=== PATIENT | male | born 2000 | race Caucasian/White ===

== ENCOUNTER 2024-07-27 13:44 | Observation (INO) | payer MEDICAID, SELFPAY ==
[2024-07-27] VITALS (14 sets, daily range): BP systolic 115–176; BP diastolic 55–83; PULSE 78–103; RESP 16–22; TEMP 36.5–37.2; O2SAT 96–100; BMI 38.9; BMI 32.5
[2024-07-27 14:15] LABS: Bacteria 0 SEEN /hpf (None Seen); Mucous, Urine 0 SEEN /hpf (<or=2+)
[2024-07-27 14:16] LABS: Color, Urine Yellow (Yellow); Glucose, Dipstick Normal (Normal); Ketone-Dipstick Negative (Negative); Leukocyte Esterase-Dipstick 25 /ul (Negative); Nitrite-Dipstick Negative (Negative); Occult Blood-Urine Negative /ul (Negative); Protein-Dipstick 15 mg/dl (Negative); Specific Gravity, Urine 1.015 (1.002-1.030); Urine Bilirubin Dipstick Negative (Negative); Urine Clarity Clear (Clear); Urine Urobilinogen Normal (Normal); Urine pH 6.5 (5.0 - 8.0)
[2024-07-27 14:32] LABS: Absolute Lymphocyte Count 2.74 X10^3/uL (0.83-4.51); Absolute Neutrophil Count 3.2 X10^3/uL (2.0-7.7); Basophil# 0.05 X10^3/uL; Basophil% 0.7 % (0-1); Eosinophil# 0.13 X10^3/uL; Eosinophils% 1.9 % (0-5); Hematocrit 44.5 % (40-54); Hemoglobin 15.4 g/dL (13.0-16.5); Lymphocyte # 2.74 X10^3/ul (0.83-4.51); Lymphocyte % 40.5 % (19-41); Mean Corp Hgb Conc 34.6 g/dL (32-36); Mean Corpuscular Hgb 29.6 pg (27.0-32.0); Mean Corpuscular Volume 85.4 fL (80-94); Mean Platelet Vol. 11.4 fl (6.2-12.0); Monocyte# 0.58 X10^3/uL; Monocyte% 8.6 % (0-10); NRBC Flagged by Analyzer 0 % (0-5); Neutrophil # 3.22 X10^3/uL (2.7-7.7); Neutrophil % 47.7 % (47-70); Platelet Count 287 K/mm3 (150-450); RBC Distribution Width CV 13.1 % (11.6-14.6); RBC Distribution Width SD 39.9 fl (35.1-43.9); Red Blood Count 5.21 M/mm3 (4.6-6.2); White Blood Count 6.8 K/mm3 (4.4-11.0)
[2024-07-27 14:40] LABS: Squamous Epithelial Cells - UA 0-5 SEEN /hpf (0-5); White Blood Cells 0-5 SEEN /hpf (0-5)
[2024-07-27 14:41] LABS: Red Blood Cells-Urine 0 SEEN /hpf (0-5)
[2024-07-27 15:22] LABS: Anion Gap 11 (5-15); BUN 9 mg/dL (4-19); BUN/Creat Ratio 11.5 RATIO (10-20); Calcium,Total 9.7 mg/dL (7.6-11.0); Carbon Dioxide 25.3 mmol/L (21.0-32.0); Chloride 105 mmol/L (98-108); Creatinine, Serum 0.81 mg/dL (0.70-1.20); EST Glomerular Filtration Rate 126 (>60); Estimated Creatinine Clearance 201.81 ml/min (50-250); Glucose 110 mg/dL (70-99); Potassium 3.7 mmol/L (3.3-5.1); Sodium Level 141 mmol/L (133-145)
--- NOTE | 2024-07-27 15:22 | CT_ITS ---
PROCEDURE: ABDOMEN/PELVIS W IV CONT ONLY REASON FOR EXAM: One-week history of right-sided abdominal pain. TECHNIQUE: Abdomen and pelvis CT with intravenous contrast. No oral contrast. IV CONTRAST: 93 cc of Isovue-300. COMPARISON: None. FINDINGS: Lung bases: Clear Liver: Diffuse fatty infiltration. Gallbladder: Unremarkable. Spleen: Unremarkable. Pancreas: Unremarkable. Adrenals: Unremarkable. Kidneys: Unremarkable. Bladder: Unremarkable. Reproductive Organs: Unremarkable. Bowel: Unremarkable. Appendix: A calcified appendicolith is seen within the appendix. The appendix measures upper limits of normal. Questionable small amount of Fidelina appendiceal inflammatory change. Clinical correlation recommended. Lymph nodes: No suspicious lymph node enlargement. Vasculature: Major vascular structures are unremarkable. Peritoneum / Retroperitoneum: No ascites. No free air. Bones: Unremarkable. CT/Abdomen/Pelvis W IV Cont ONLY IMPRESSION: Subtle findings suggestive of mild acute appendicitis with a calcified appendic olith. Clinical correlation recommended. One or more dose reduction techniques were used (e.g., Automated exposure contr ol, adjustment of the mA and/or kV according to patient size, use of iterative reconstruction technique). Reading Location: [id number]
--- NOTE | 2024-07-27 15:24 | EDS_ITS ---
HPI HPI - GI History of Present Illness Chief Complaint: Abd Pain Informant: patient and family Narrative Narrative: Here with family referred from urgent care. Right side abdominal pain waxing and waning for a week. Pain worse at night. No worsening pain with foods. No fever or chills. No nausea or vomiting. Normal stools. No urinary symptoms. Denies trauma. No abdominal surgeries. No medications taken at home. Prior similar symptoms: No PFSH PFSH Medical History (Updated 07/27/24 @ 22:[address] tSewart Samuels DO) Appendicitis No significant medical problems Home Medications ?Medication ?Instructions ?Recorded ?Last Taken ?Type NK 09/25/23 Unknown History Allergy/AdvReac Type Severity Reaction Status Date / Time cefazolin Allergy throat Verified 07/27/24 17:20 swelling Surgical History No significant past surgical history Social History Smoking Status: Current every day smoker tobacco type: cigarettes and smokeless tobacco Smokeless tobacco user: other Electronic Cigarette Use: with nicotine alcohol intake: never substance use type: does not use ROS ROS ED Constitutional Constitutional ED: Denies chills, fever(s) or sweats ENT ENT ED: Denies sore throat Cardiovascular Cardiovascular: Denies chest pain, leg edema, palpitations or racing heartbeat Respiratory/Chest Respiratory/Chest: Denies cough, dyspnea or dyspnea on exertion Gastrointestinal Gastrointestinal: Reports abdominal pain; Denies diarrhea, nausea or vomiting Genitourinary Genitourinary ED: Denies dysuria, hematuria or urinary frequency Musculoskeletal Musculoskeletal: Denies back pain, extremity pain or neck pain Integumentary Denies rash or wounds Neurologic Neurologic: Denies headache(s), paresthesias or weakness EXAM Physical Exam Const Vital Signs: 07/27/24 13:45 07/27/24 16:40 07/27/24 17:56 Temperature 98.1 F 98.2 F 98.2 F Temperature Source Temporal Pulse Rate 87 88 88 Pulse Strength Respiratory Rate 16 16 16 Respiratory Effort Respiratory Depth Respiratory Pattern Blood Pressure 176/83 H 144/67 H 144/67 H Blood Pressure Mean 114 92 Blood Pressure Source Blood Pressure Position Blood Pressure Location Baseline BP Pulse Ox 99 97 97 Oxygen Delivery Method Room Air 07/27/24 19:15 07/27/24 19:15 07/27/24 19:20 Temperature 97.7 F L Temperature Source Temporal Pulse Rate 84 85 Pulse Strength Normal (2+) Respiratory Rate 18 18 Respiratory Effort Respiratory Depth Respiratory Pattern Normal Blood Pressure 131/77 H 122/60 H Blood Pressure Mean 95 80 Blood Pressure Source Monitor Monitor Blood Pressure Position Semi-Fowlers Semi-Fowlers Blood Pressure Location Left Arm Left Arm Baseline BP 144/67 Pulse Ox 100 100 Oxygen Delivery Method Room Air Room Air 07/27/24 19:21 07/27/24 19:25 07/27/24 19:30 Temperature 97.7 F L Temperature Source Pulse Rate 86 78 80 Pulse Strength Respiratory Rate 16 18 16 Respiratory Effort Respiratory Depth Respiratory Pattern Blood Pressure 131/77 H 121/55 H 116/61 Blood Pressure Mean 77 79 Blood Pressure Source Monitor Monitor Blood Pressure Position Semi-Fowlers Semi-Fowlers Blood Pressure Location Left Arm Left Arm Baseline BP 144/67 Pulse Ox 98 97 100 Oxygen Delivery Method Room Air Room Air Room Air 07/27/24 19:45 07/27/24 20:00 07/27/24 20:15 Temperature Temperature Source Pulse Rate 86 94 97 Pulse Strength Respiratory Rate 16 16 18 Respiratory Effort Respiratory Depth Respiratory Pattern Blood Pressure 115/66 135/81 H 131/65 H Blood Pressure Mean 82 99 87 Blood Pressure Source Monitor Monitor Monitor Blood Pressure Position Semi-Fowlers Semi-Fowlers Semi-Fowlers Blood Pressure Location Left Arm Left Arm Left Arm Baseline BP 144/67 144/67 144/67 Pulse Ox 98 97 100 Oxygen Delivery Method Room Air Room Air Room Air 07/27/24 20:25 07/27/24 20:49 07/27/24 21:57 Temperature 97.7 F L 97.9 F Temperature Source Temporal Oral Pulse Rate 103 H 93 Pulse Strength Respiratory Rate 16 22 H Respiratory Effort Normal Non-Labored Respiratory Depth Normal Respiratory Pattern Normal Blood Pressure 134/75 H 137/78 H Blood Pressure Mean 94 97 Blood Pressure Source Monitor Monitor Blood Pressure Position Semi-Fowlers Semi-Fowlers Blood Pressure Location Left Arm Left Arm Baseline BP 144/67 Pulse Ox 100 96 Oxygen Delivery Method Room Air Room Air Room Air Positive well nourished and well developed General Appearance ED: well developed and NAD HEENT Reports moist mucous membranes normocephalic and atraumatic Eyes General Eye ED: Yes normal appearance of both eyes Neck full ROM Chest Wall Chest: Negative for tenderness Resp normal respiratory effort and normal air movement Effort and Inspection: symmetric chest movement; Negative for respiratory distress Cardio regular rate, regular rhythm and no murmurs Peripheral Pulses: pulses 2+ throughout GI normal to inspection, nondistended, normoactive bowel sounds GI Narrative: Tenderness right mid abdomen. No rash. negative Tian's or McBurney's tenderness. Palpation: Negative for guarding or rebound tenderness present Back/Spine no CVA tenderness Extremity normal to inspection General Extremety ED: Negative for edema or tenderness General Extremity: Negative for edema Neuro oriented x3 and no sensory deficits noted Sensorium / Orientation: awake and alert Skin no rashes or lesions noted and no wounds MDM MDM MDM Narrative Medical decision making narrative: Interventions / MDM: Differential diagnosis: Acute appendicitis, abdominal pain Diagnosis considered but do not suspect: N/A My EKG interpretation: Sinus rate of 98, no ST changes. Imaging independently reviewed and interpreted by myself: CT abdomen pelvis IV contrast: Appendicolith with acute appendicitis. Preop 1 view chest x-ray: No acute process. External documents reviewed: N/A Test considered but not ordered:N/A ED course: Tenderness right side mid abdomen. Negative Tian's McBurney's. No vomiting no diarrhea no fevers. He had basic labs through triage white count normal at 6.8. Creatinine 0.81. Urine had 25 leukocytes no hematuria. Will add lipase liver enzymes, CT abdomen pelvis IV contrast for further evaluation. Toradol ordered for symptom control. 1618: CT result concerning for periappendiceal stranding with appendicolith. Appendix at the iliac crest region. On reevaluation there is tenderness in this region also. I will discuss with general surgery. 1620: Discussed with Dr. Alcala, he did eat a full meal at 1 PM nearly 3 and half hours ago. Will start Zosyn. He will evaluate the patient admit under ops at this time, will see able to do tonight versus tomorrow. Will admit under surgery service. Re-evaluation: stable Disposition discussed with patient/family/significant other: Patient and family Case discussed with consulting clinician: General Surgery This note was generated with [employer] dictation software. It may contain incorrect words, spelling, and punctuation that were not noted in checking the note before signing. Lab Data Attestation: I reviewed the patient's lab results. Labs: Laboratory Results - last 24 hr 07/27/24 07/27/24 07/27/24 14:08 14:20 16:41 WBC 6.8 RBC 5.21 Hgb 15.4 Hct 44.5 MCV 85.4 MCH 29.6 MCHC 34.6 RDW Std Deviation 39.9 RDW Coeff of John 13.1 Plt Count 287 MPV 11.4 Immature Gran % (Auto) 0.600 Neut % (Auto) 47.7 Lymph % (Auto) 40.5 [place] % (Auto) 8.6 Eos % (Auto) 1.9 Baso % (Auto) 0.7 Absolute Neuts (auto) 3.2 Absolute Lymphs (auto) 2.74 Nucleated RBC % 0 PT 12.0 INR 0.9 APTT 22.3 L Sodium 141 Potassium 3.7 Chloride 105 Carbon Dioxide 25.3 Anion Gap 11 BUN 9 Creatinine 0.81 Estim Creat Clear Calc 201.81 Est GFR (MDRD) Non-Af 126 BUN/Creatinine Ratio 11.5 Glucose 110 H Calcium 9.7 Total Bilirubin 0.33 Direct Bilirubin 0.14 AST 32 ALT 33 Alkaline Phosphatase 80 Total Protein 7.9 Albumin 4.6 Globulin 3.3 Lipase 30 Urine Color Yellow Urine Clarity Clear Urine pH 6.5 Ur Specific [place] 1.015 Urine Protein 15 H Urine Glucose (UA) Normal Urine Ketones Negative Urine Occult Blood Negative Urine Nitrite Negative Urine Bilirubin Negative Urine Urobilinogen Normal Ur Leukocyte Esterase 25 H Urine RBC 0 SEEN Urine WBC 0-5 SEEN Ur Squamous Epith Cells 0-5 SEEN Urine Bacteria 0 SEEN Urine Mucus 0 SEEN Blood Type O POSITIVE Antibody Screen NEGATIVE Radiography Diagnostic Testing: Clinical Impression(s) from Imaging Studies Abdomen/Pelvis CT 07/27/24 15:22 IMPRESSION: Subtle findings suggestive of mild acute appendicitis with a calcified appendicolith. Clinical correlation recommended. One or more dose reduction techniques were used (e.g., Automated exposure control, adjustment of the mA and/or kV according to patient size, use of iterative reconstruction technique). Reading Location: [id number] Chest X-Ray 07/27/24 16:30 IMPRESSION: NEGATIVE CHEST. Reading Location: [facility] Discharge Plan Dx/Rx/DC Orders Clinical Impression: Acute appendicitis, Abdominal pain Disposition Disposition: Acute Care Hospital [facility] Discharge Date/Time: 07/27/24 17:01
[2024-07-27] MEDS: Ketorolac 15 MG/ML Vial IV (15:39)
[2024-07-27] MEDS: 0.9% Normal Saline (500mL Bag) 500 ML 999 ML IV (15:39)
--- NOTE | 2024-07-27 16:30 | RAD_ITS ---
PROCEDURE: CHEST 1 VIEW (PORTABLE) REASON FOR EXAM: 24-year-old male, preoperative examination. TECHNIQUE: Frontal view of the chest. COMPARISON: Same day CT abdomen pelvis. FINDINGS: The heart size is normal. No focal consolidation, pleural effusion or pneumothorax. The bones are unremarkable. RAD/Chest 1 View (Portable) IMPRESSION: NEGATIVE CHEST. Reading Location: [id number]
[2024-07-27 16:32] LABS: AST(SGOT) 32 U/L (<=37); Alanine Aminotransfer ALT/SGPT 33 U/L (<=46); Albumin, Serum 4.6 g/dL (3.5-5.0); Alkaline Phosphatase 80 U/L (40-129); Bilirubin, Direct 0.14 mg/dL (0.00-0.30); Globulin 3.3 g/dL (2.2-4.2); Lipase 30 U/L (13-75); Protein, Total 7.9 g/dL (5.9-8.4); Total Bilirubin 0.33 mg/dL (0.00-1.30)
[2024-07-27] MEDS: Piperacil/Tazobactam 4.5 GM in 0.9% Normal Saline (100mL MB+) 100 ML IV (16:41)
[2024-07-27 17:03] LABS: International Normalized Ratio 0.9; Partial Thromboplast Time 22.3 Seconds (24.1-36.2)
--- NOTE | 2024-07-27 17:56 | PCM.PRE.AN2 ---
ASA Classification* ASA Classification ASA Classification: 3 Assessment & Plan Anesthesia* Anesthesia Assessment Anesthesia Assessment: Discussed sedation and/or anesthesia options, risks, benefits, and alternatives with patient/parents/legal guardian/POA. Questions invited. The patient/parents/legal guardian/POA seems to understand and agrees to proceed with anesthesia plan. Reviewed the physical assessment, medical history, allergy history and patient home medications list prior to surgery/procedure/anesthetic and documented any changes. Performed airway and anesthesia risk assessments. Anesthesia Type Anesthesia Type: General Anesthesia Focused Assessment* Temperature: 98.2 F Pulse Rate: 88 Blood Pressure: 144/67 Respiratory Rate: 16 Pulse Ox: 97 Airway Assessment Mouth opens: >3 cm Mallampati Score: II Focused Labs Anesthesia Preop lab: CBC WBC 6.8 K/mm3 (4.4-11.0) 07/27/24 14:20 07/27/24 RBC 5.21 M/mm3 (4.6-6.2) 07/27/24 14:20 07/27/24 Hgb 15.4 g/dL (13.0-16.5) 07/27/24 14:20 07/27/24 Hct 44.5 % (40-54) 07/27/24 14:20 07/27/24 Plt Count 287 K/mm3 (150-450) 07/27/24 14:20 07/27/24 CHEMISTRY Potassium 3.7 mmol/L (3.3-5.1) 07/27/24 14:20 07/27/24 Sodium 141 mmol/L (133-145) 07/27/24 14:20 07/27/24 BUN 9 mg/dL (4-19) 07/27/24 14:20 07/27/24 Creatinine 0.81 mg/dL (0.70-1.20) 07/27/24 14:20 07/27/24 Glucose 110 mg/dL (70-99) H 07/27/24 14:20 07/27/24 COAG PT 12.0 SECONDS (11.7-14.9) 07/27/24 16:41 07/27/24 Pre-Assessment Diagnosis/Proposed Procedure Planned Operative Procedure(s): laproscopic appendectomy Anesthesia History 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 When Was Last Pacemaker Check QUESTION #4 FULL TEXT: You/Your Family Experience fever (hyperthermia) with Anesthesia Last Oral Intake Last Oral intake: Last Oral Intake NPO since 13:00 07/27/24 16:51 Meds taken in AM with sips of water? 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 Has anyone observed you stop No 07/27/24 16:51 breathing during sleep? STOP Results Negative 07/27/24 16:51 QUESTION #5 FULL TEXT : Do you snore loudly (louder than talking or can be heard through closed doors)? 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 Specify any problems Hx of Preganancy in last 3 Months Nurse Filling Out Transfusion & Questions: Date: Time: Patient unable to answer at this time (ie. 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: /Reproductive Hx- supervisor metal furniture fabrication Hx Now No 07/27/24 16:51 Gestational Age (in weeks): EDC: Hx Hx Para Hx Section SAB Active Medications Active Medications: Current Medications Generic Name Dose Route Start Last Admin Trade Name Freq PRN Reason Stop Dose Admin Sodium Chloride 1,000 mls @ 15 mls/hr 07/27/24 17:30 IV 08/02/24 06:49 .Q48H [facility] Protocol PFSH Medical History No significant medical problems Home Medications ?Medication ?Instructions ?Recorded ?Last Taken ?Type NK 09/25/23 Unknown History Allergy/AdvReac Type Severity Reaction Status Date / Time cefazolin Allergy throat Verified 07/27/24 17:20 swelling Surgical History No significant past surgical history Social History Smoking Status: Unknown if ever smoked Smokeless tobacco user: other Electronic Cigarette Use: with nicotine alcohol intake: never substance use type: does not use Review of Systems (Anesthesia) ROS Narrative System reviewed and no additional complaints, except as documented.
--- NOTE | 2024-07-27 18:05 | APP_PTH ---
PATIENT: YOSEF DENTON LOC: MS3 U#:[id number] AGE/SX: 24/M ROOM: WI310 RE07/27/[address]: Dr. Wilmer Alcala MD : 2000 BED: 1 DIS: 07/28/2024 SPEC #: [id number] RECD: 07/28/24 09:56 STATUS: ALBERTO OGDEN #: [id number] JCARLOS: 07/27/24 18:[address]: Wilmer Alcala DEPT: SURGICAL PATHOLOGY RECD BY: Catalina Larkin ENTERED: 07/28/24 11:21 SP TYPE: APPENDIX OTHR DR: Jessica Primary Care Phys Tissues: Appendix, NOS Procedures: Surgery Specimen Level III HEADER OPERATION: Laparoscopic appendectomy PRE-OP DIAGNOSIS: Appendicitis TISSUE SUBMITTED: Appendix MICROSCOPIC DIAGNOSIS Appendix, appendectomy: * Acute appendicitis. MICROSCOPIC DESCRIPTION Slides are reviewed. GROSS DESCRIPTION Received in formalin labeledBishop Blade and designated appendix, is a vermiform appendix that measures 5.2 cm long x 1.1 cm in diameter. The serosal surface is red-barker with focal ragged fibrous adhesions and a minimal amount of barker fibrin. The serosa adjacent to the staple line margin is inked black. Sectioning shows focal areas of mucosal hemorrhage. The lumen contains formed fecal material however no fecalith is seen. There are no areas suspicious for perforation seen. The wall at the appendix tip is slightly thickened and there is minimal mucosal hemorrhage. The mesoappendix measures 3.5 x 1.5 x 1.0 cm. Field Research Associate sections submitted in one cassette. Quinn. 07/28/2024 CPT:23641
--- NOTE | 2024-07-27 18:05 | HP.PCM_ITS ---
HPI - General General Date of Admission: 07/27/24 Date of Service: 07/27/24 Chief Complaint: Right lower quadrant pain HPI Narrative YOSEF DENTON, is a 24 M who presented to the emergency department earlier today with not a weeks worth of right sided abdominal pain. He states that this is worse at night. He denies any fevers or chills. No nausea or vomiting. He was seen evaluate by the ER staff. He had a normal white blood cell count however CAT scan seem to indicate an early appendicitis. He denies any previous abdominal surgery. Surgical consultation was obtained. [facility] Medical History (Updated 07/27/24 @ 18:[address] Wilmer Alcala MD) Appendicitis No significant medical problems Home Medications ?Medication ?Instructions ?Recorded ?Last Taken ?Type NK 09/25/23 Unknown History Allergy/AdvReac Type Severity Reaction Status Date / Time cefazolin Allergy throat Verified 07/27/24 17:20 swelling Surgical History No significant past surgical history Social History Smoking Status: Unknown if ever smoked Smokeless tobacco user: other Electronic Cigarette Use: with nicotine alcohol intake: never substance use type: does not use ROS Constitutional Constitutional: Reports systems reviewed and no addt'l complaints, except as documented Eyes Eyes: Reports systems reviewed and no addt'l complaints, except as documented ENT HEENT: Reports systems reviewed and no addt'l complaints, except as documented Cardiovascular Cardiovascular: Reports systems reviewed and no addt'l complaints, except as documented Respiratory/Chest Respiratory/Chest: Reports systems reviewed and no addt'l complaints, except as documented Gastrointestinal Gastrointestinal: Reports systems reviewed and no addt'l complaints, except as documented Vital Signs Vital Signs Vital Signs: 07/27/24 13:45 07/27/24 16:40 07/27/24 17:56 Temperature 98.1 F 98.2 F 98.2 F Temperature Source Temporal Pulse Rate 87 88 88 Respiratory Rate 16 16 16 Blood Pressure 176/83 H 144/67 H 144/67 H Blood Pressure Mean 114 92 Pulse Ox 99 97 97 Oxygen Delivery Method Room Air Weight Weight: 295 lb Body Mass Index (BMI) 38.9 Physical Exam Const alert, oriented x3 and no apparent distress HEENT normocephalic Eyes PERRL Neck full ROM GI GI Narrative: Mild right-sided tenderness to palpation. No rebound or guarding Results Lab / Micro Data 07/27/24 14:20 07/27/24 14:20 Labs: Laboratory Results - last 24 hr 07/27/24 14:08: Urine Color Yellow, Urine Clarity Clear, Urine pH 6.5, Ur Specific [place] 1.015, Urine Protein 15 H, Urine Glucose (UA) Normal, Urine Ketones Negative, Urine Occult Blood Negative, Urine Nitrite Negative, Urine Bilirubin Negative, Urine Urobilinogen Normal, Ur Leukocyte Esterase 25 H, Urine RBC 0 SEEN, Urine WBC 0-5 SEEN, Ur Squamous Epith Cells 0-5 SEEN, Urine Bacteria 0 SEEN, Urine Mucus 0 SEEN 07/27/24 14:20: WBC 6.8, RBC 5.21, Hgb 15.4, Hct 44.5, MCV 85.4, MCH 29.6, MCHC 34.6, RDW Std Deviation 39.9, RDW Coeff of John 13.1, Plt Count 287, MPV 11.4, Immature Gran % (Auto) 0.600, Neut % (Auto) 47.7, Lymph % (Auto) 40.5, [place] % (Auto) 8.6, Eos % (Auto) 1.9, Baso % (Auto) 0.7, Absolute Neuts (auto) 3.2, Absolute Lymphs (auto) 2.74, Nucleated RBC % 0, Sodium 141, Potassium 3.7, Chloride 105, Carbon Dioxide 25.3, Anion Gap 11, BUN 9, Creatinine 0.81, Estim Creat Clear Calc 201.81, Est GFR (MDRD) Non-Af 126, BUN/Creatinine Ratio 11.5, G lucose 110 H, Calcium 9.7, Total Bilirubin 0.33, Direct Bilirubin 0.14, AST 32, ALT 33, Alkaline Phosphatase 80, Total Protein 7.9, Albumin 4.6, Globulin 3.3, Lipase 30 07/27/24 16:41: PT 12.0, INR 0.9, APTT 22.3 L, Blood Type O POSITIVE, Antibody Screen NEGATIVE Imaging Radiology Impression Abdomen/Pelvis CT 07/27/24 15:22 IMPRESSION: Subtle findings suggestive of mild acute appendicitis with a calcified appendicolith. Clinical correlation recommended. One or more dose reduction techniques were used (e.g., Automated exposure control, adjustment of the mA and/or kV according to patient size, use of iterative reconstruction technique). Reading Location: [id number] Chest X-Ray 07/27/24 16:30 IMPRESSION: NEGATIVE CHEST. Reading Location: [id number] Assessment & Plan Assessment/Plan (1) Appendicitis: PLAN: The patient is a 24-year-old male with right lower quadrant pain and a CT scan that seems to indicate early appendicitis. I have offered him a laparoscopic appendectomy. We discussed the details of the planned procedure and he wishes to proceed. Surgery will begin momentarily
[2024-07-27] MEDS: Bupiv/Epi 0.25% 30 ML Vial INFILT (18:56)
--- NOTE | 2024-07-27 18:57 | PCM.OPRPT ---
Problems Associated Problem List Diagnoses (1) Appendicitis: Procedures Digestive 40xxx-49xxx: 05554 Laparoscopy appendectomy Operative Report (Standard) Operative Information Date of Procedure: 07/27/24 Pre-Operative Diagnosis: ACUTE APPENDICITIS Post-Operative Diagnosis: same Surgery/Procedure Performed: laparoscopic appendectomy telecommunications manager: Yes Cdl Dedicated Truck Driver: Darrel Warren Tasks completed by recreational assistant: Closing and Trocar Additional assistant city attorney?: No Type of Anesthesia: General and Local RN Documented Start/Stop Times: Operation Date: 07/27/24 18:05 Case Time Into Pre-Op 07/27/24 17:11 Anesthesia Start 07/27/24 18:09 Into Room 07/27/24 18:09 Procedure Start 07/27/24 18:28 Procedure End 07/27/24 19:05 Anesthesia End 07/27/24 19:12 Out of Room 07/27/24 19:12 Into Recovery 07/27/24 19:15 Procedure Start Time: 18:28 Procedure Stop Time: 19:05 Select all DRAINS/GRAFTS/IMPLANTS that apply: None Special Medications: zosyn pre op Estimated Blood Loss: 10 mL Specimen collected: Yes Description of specimen(s) removed: appendix Description of surgery: The patient is a 24-year-old male who presented to the emergency room this afternoon with right side abdominal pain for about a week or so. Workup in the ER he included a CT scan that showed mild appendicitis. I offered him a laparoscopic appendectomy as treatment. We discussed the details of the planned procedure and he wished to proceed. The patient was brought to the operating room today following informed consent. Preoperative antibiotics were given and a timeout was performed. He was placed supine on the operative table with arms outstretched on arm boards. A general endotracheal anesthesia was induced. Once adequately anesthetized his left arm was tucked comfortably at his side. The abdomen is then prepped and draped in usual sterile manner. A small incision was made just below the umbilicus through which a 5 mm trocar was placed optically. This was placed without difficulty. The abdomen was then insufflated with CO2 gas. A 5 mm 0 degree scope was inserted. There were no signs of bowel or vascular injury. Next another 5 mm trocar was placed in the left lower quadrant and a 12 mm trocar was placed in the left upper quadrant. Both of these were placed under direct visualization and without difficulty. The cecum was identified and was reflected in a cephalad direction. This then exposed the thickened appendix. This seems to be both acutely as well as somewhat chronic in nature. It was very hard and fibrosed and actually quite shortened. A [place] dissector was then used to create a small window in the mesentery right at the base of the appendix. A RAÚL stapler was fired across the base the appendix flush with the cecum. Next 2 vascular loads were then fired across the mesoappendix until the specimen was free. The appendix was then placed into a bag and brought out through the 12 mm trocar site. The trocar was replaced. The right lower quadrant was then copiously irrigated. There was a small area of peritoneum that had some mild oozing. This was promptly cauterized. Hemostasis was excellent. There were no signs of bowel or vascular injury. The fascia at the 12 mm trocar site was then closed using 0 PDS with the aid of the fascial closure device. The remaining trocars were opened up and insufflation was allowed to escape. Each and the incisions were injected with a total of 20 cc of local anesthetic. The incisions were then closed with 4-0 Vicryl. Skin glue was applied as dressing. He was awakened from anesthesia and taken to PACU in good condition. A LUMBER HANDLER was utilized as a regulatory assistant. His role included holding the camera and assistance with incision closure. Surgical Findings: acute on chronic appendicitis Complications Complications: No Admit VTE Documentation VTE Present on Admission: No VTE Mechan Device Prophylaxis: SCD's VTE Pharm Prophylaxis ordered?: No Reason prophylaxis not ordered: Treatment Not Indicated
--- NOTE | 2024-07-27 19:06 | DCINST_ITS ---
Discharge Instructions Diet Discharge Diet: Light diet - advance as tolerated Activity Discharge Activity: Return to Normal Activity and May Shower May shower in (days): 1 Ice area for (Minutes): 30 Lifting Restrictions: keep lifting under 20 pounds for 4 weeks Dressing / Incision Call your doctor if your incision/area has: Continuous Slow Oozing, Sudden Increased Bleeding, Increased Pain/ Swelling, Increased Redness, Foul Smelling Discharge and Swelling at the incision site Call your doctor if you observe: Fever of 101 or Higher Follow Up Care Please Follow Up With: Wilmer Alcala MD When: 2 weeks. call office to schedule appointment Test Results: Test results from this visit will be discussed in further detail at your follow- up appointment, if applicable. Discharge Plan Admission Primary Reason for Your Visit: acute appendicitis Attending Provider: Wilmer Alcala Primary Care Provider: Care Physician,No Primary Instructions Print Language: Slovenian Discharge Orders/Prescriptions Prescriptions: Continued NK Referrals / Follow Up: Care Physician,No Primary [Primary Care Provider] - Disposition Disposition (needs filled in before D/C Order can be placed): Home, Self Care
--- NOTE | 2024-07-27 19:15 | PCM.POST.ANE ---
Anesthesia: Postop Eval I Current Vital Signs Temperature: 97.7 F Pulse Rate: 86 Blood Pressure: 131/77 Respiratory Rate: 16 Pulse Ox: 98 Oxygen Delivery Method: Room Air Assessment Airway patent: Yes Spontaneous unlabored respirations: Yes nausea: No Vomiting: No Anesthesia Complication: No Fluid Hydration Crystalloid volume administer (ml): 450 Total IV fluid infused: 450 Progress Note Anesthesia document: Postop Eval 1 completed: Yes
--- NOTE | 2024-07-27 19:21 | PCM.POSTANE2 ---
Anesthesia Postop Eval I Sum Postop Eval Completion status Anesthesia document: Postop Eval 1 completed: Yes Anesthesia Postop Eval I Summary Anesthesia Postop Eval I Summary: Anesthesia Postop Eval I: Assessment Summary Airway patent Yes 07/27/24 19:21 Spontaneous unlabored Yes 07/27/24 19:21 respirations Mental status nausea No 07/27/24 19:21 Vomiting No 07/27/24 19:21 Anesthesia Postop Eval I: Fluid Summary Crystalloid volume administer 450 07/27/24 19:21 (ml) Colloids volume administered ( ml) Blood Product volume administered (ml) Total IV fluid infused 450 07/27/24 19:21 Anesthesia Postop Eval I: Summary Notes Anesthesia Complication No 07/27/24 19:21 Anesthesia Complication Comment: Post-operative progress note Anesthesia: Postop Eval II Evaluation Mental status: Awake Pain Level: 0 nausea: No Vomiting: No
[2024-07-27] MEDS: Piperacil/Tazobactam 3.375 GM in 0.9% Normal Saline (50mL MB+) 50 ML IV (22:05)
[2024-07-27] MEDS: Acetaminophen 500 MG Tablet 1000 MG PO (22:05)
[2024-07-27] MEDS: 0.9% Normal Saline (100mL Bag) 100 ML 15 ML IV (22:06)
[2024-07-27] MEDS: 0.9% Saline Lock 10 ML Syringe IV (22:06)
[2024-07-27] MEDS: oxyCODONE 5 MG Tablet PO (23:29)
[2024-07-28 01:49] VITALS: BP 144/79; PULSE 86; RESP 18; TEMP 37.1; O2SAT 98
[2024-07-28 05:25] VITALS: BP 139/73; PULSE 66; RESP 18; TEMP 36.9; O2SAT 98
[2024-07-28] MEDS: Acetaminophen 500 MG Tablet 1000 MG PO (05:28)
[2024-07-28] MEDS: Piperacil/Tazobactam 3.375 GM in 0.9% Normal Saline (50mL MB+) 50 ML IV (05:28)
[2024-07-28 07:05] LABS: Absolute Lymphocyte Count 2.56 X10^3/uL (0.83-4.51); Absolute Neutrophil Count 6.2 X10^3/uL (2.0-7.7); Basophil# 0.04 X10^3/uL; Basophil% 0.4 % (0-1); Eosinophil# 0.13 X10^3/uL; Eosinophils% 1.3 % (0-5); Hematocrit 38.6 % (40-54); Hemoglobin 13.3 g/dL (13.0-16.5); Lymphocyte # 2.56 X10^3/ul (0.83-4.51); Mean Corp Hgb Conc 34.5 g/dL (32-36); Mean Corpuscular Hgb 29.7 pg (27.0-32.0); Mean Corpuscular Volume 86.2 fL (80-94); Mean Platelet Vol. 11.7 fl (6.2-12.0); Monocyte# 0.86 X10^3/uL; Monocyte% 8.7 % (0-10); NRBC Flagged by Analyzer 0 % (0-5); Neutrophil # 6.21 X10^3/uL (2.7-7.7); Neutrophil % 63.1 % (47-70); Platelet Count 260 K/mm3 (150-450); RBC Distribution Width CV 13.2 % (11.6-14.6); RBC Distribution Width SD 41.1 fl (35.1-43.9); Red Blood Count 4.48 M/mm3 (4.6-6.2); White Blood Count 9.9 K/mm3 (4.4-11.0)
[2024-07-28 08:22] LABS: Anion Gap 13 (5-15); BUN 8 mg/dL (4-19); BUN/Creat Ratio 9.5 RATIO (10-20); Calcium,Total 8.9 mg/dL (7.6-11.0); Carbon Dioxide 21.7 mmol/L (21.0-32.0); Chloride 105 mmol/L (98-108); Creatinine, Serum 0.84 mg/dL (0.70-1.20); EST Glomerular Filtration Rate 125 (>60); Estimated Creatinine Clearance 182.82 ml/min (50-250); Glucose 114 mg/dL (70-99); Potassium 3.9 mmol/L (3.3-5.1); Sodium Level 140 mmol/L (133-145)
--- NOTE | 2024-07-28 08:47 | PN.SURG_ITS ---
Subjective Subjective Patient evaluated resting comfortably in bed. He notes incisional discomfort. He denies nausea, vomiting, fever. He denies flatus or BM. Objective Data Objective Data Vital Signs: Vital Signs Temp Pulse Resp BP Pulse Ox O2 Del Method 98.5 F 66 18 139/73 H 98 Room Air 07/28/24 05:25 07/28/24 05:25 07/28/24 05:25 07/28/24 05:25 07/28/24 05:25 07/28/24 05:25 Oxygen Delivery Method Room Air Weight: 253 lb 8.505 oz Body Mass Index (BMI) 32.5 Intake & Output: Intake and Output for Last 24 Hours 07/26/24 07/27/24 07/28/24 23:59 23:59 23:59 Intake Total 600 / 600 50 / 50 Balance 600 / 600 50 / 50 Lab / Micro Data 07/28/24 06:18 07/28/24 06:18 Labs: Laboratory Results - last 24 hr 07/27/24 14:08: Urine Color Yellow, Urine Clarity Clear, Urine pH 6.5, Ur Specific [place] 1.015, Urine Protein 15 H, Urine Glucose (UA) Normal, Urine Ketones Negative, Urine Occult Blood Negative, Urine Nitrite Negative, Urine Bilirubin Negative, Urine Urobilinogen Normal, Ur Leukocyte Esterase 25 H, Urine RBC 0 SEEN, Urine WBC 0-5 SEEN, Ur Squamous Epith Cells 0-5 SEEN, Urine Bacteria 0 SEEN, Urine Mucus 0 SEEN 07/27/24 14:20: WBC 6.8, RBC 5.21, Hgb 15.4, Hct 44.5, MCV 85.4, MCH 29.6, MCHC 34.6, RDW Std Deviation 39.9, RDW Coeff of John 13.1, Plt Count 287, MPV 11.4, Immature Gran % (Auto) 0.600, Neut % (Auto) 47.7, Lymph % (Auto) 40.5, Caroline % (Auto) 8.6, Eos % (Auto) 1.9, Baso % (Auto) 0.7, Absolute Neuts (auto) 3.2, Absolute Lymphs (auto) 2.74, Nucleated RBC % 0, Sodium 141, Potassium 3.7, Chloride 105, Carbon Dioxide 25.3, Anion Gap 11, BUN 9, Creatinine 0.81, Estim Creat Clear Calc 201.81, Est GFR (MDRD) Non-Af 126, BUN/Creatinine Ratio 11.5, G lucose 110 H, Calcium 9.7, Total Bilirubin 0.33, Direct Bilirubin 0.14, AST 32, ALT 33, Alkaline Phosphatase 80, Total Protein 7.9, Albumin 4.6, Globulin 3.3, Lipase 30 07/27/24 16:41: PT 12.0, INR 0.9, APTT 22.3 L, Blood Type O POSITIVE, Antibody Screen NEGATIVE 07/28/24 06:18: WBC 9.9, RBC 4.48 L, Hgb 13.3, Hct 38.6 L, MCV 86.2, MCH 29.7, MCHC 34.5, RDW Std Deviation 41.1, RDW Coeff of John 13.2, Plt Count 260, MPV 11.7, Immature Gran % (Auto) 0.500, Neut % (Auto) 63.1, Lymph % (Auto) 26.0, Caroline % (Auto) 8.7, Eos % (Auto) 1.3, Baso % (Auto) 0.4, Absolute Neuts (auto) 6.2, Absolute Lymphs (auto) 2.56, Nucleated RBC % 0, Sodium 140, Potassium 3.9, Chloride 105, Carbon Dioxide 21.7, Anion Gap 13, BUN 8, Creatinine 0.84, Estim Creat Clear Calc 182.82, Est GFR (MDRD) Non-Af 125, BUN/Creatinine Ratio 9.5 L, Glucose 114 H, Calcium 8.9 Radiography Diagnostic Testing: Radiology Impression Abdomen/Pelvis CT 07/27/24 15:22 IMPRESSION: Subtle findings suggestive of mild acute appendicitis with a calcified appendicolith. Clinical correlation recommended. One or more dose reduction techniques were used (e.g., Automated exposure control, adjustment of the mA and/or kV according to patient size, use of iterative reconstruction technique). Reading Location: [id number] Chest X-Ray 07/27/24 16:30 IMPRESSION: NEGATIVE CHEST. Reading Location: [id number] Physical Exam GI GI Narrative: Abdomen- soft, tenderness at the incision sites. No erythema or infection noted. Assessment & Plan Assessment/Plan (1) Acute appendicitis: QUALIFIERS: Acute appendicitis type: with localized peritonitis A ppendicitis gangrene presence: without gangrene Appendicitis perforation presence: without perforation Appendicitis abscess presence: without abscess Q ualified Code(s): K35.30 - Acute appendicitis with localized peritonitis, without perforation or gangrene PLAN: I am following this patient in conjunction with Dr. Alcala. He will independently evaluate this patient. Labs reviewed Tolerating current diet Ready for discharge Charges/Coding Visit Charges Inpatient E&M: 94396 Subs Hosp L1 (post-op; no charge)
[2024-07-28 09:10] VITALS: BP 120/63; PULSE 68; RESP 16; TEMP 36.8; O2SAT 98
[2024-07-28] MEDS: oxyCODONE 5 MG Tablet PO (11:41)
[2024-07-28 11:58] VITALS: BP 128/74; PULSE 80; RESP 18; TEMP 36.6; O2SAT 97
--- NOTE | 2024-07-28 12:10 | DCINST_ITS ---
Discharge Instructions Diet Discharge Diet: Light diet - advance as tolerated DC O2, CPAP, BIPAP needs Home O2 Discharge instructions: No Dressing / Incision Discharge Activity: May Not Drive (3-5 days or while on narcotic pain medication) Lifting Restrictions: Nothing over >20 pounds for 2 weeks. No strenuous activity for 4 weeks Dressing / Incision Call your doctor if your incision/area has: Continuous Slow Oozing, Sudden Increased Bleeding, Increased Pain/ Swelling, Increased Redness, Foul Smelling Discharge and Swelling at the incision site Call your doctor if you observe: Fever of 101 or Higher Suture Line Care: Avoid Pulling/Pushing and Avoid Pinching/Bending Cleanse incision/area with: Soap & Water Follow Up Care Please Follow Up With: Fela Fraser PA-C When: Please contact our office to follow-up in 2 weeks. Please call [phone], option #2 to schedule Test Results: Test results from this visit will be discussed in further detail at your follow- up appointment, if applicable. Discharge Plan Admission Admit Date/Time: 07/27/24 19:25 Primary Reason for Your Visit: acute appendicitis Attending Provider: Wilmer Alcala Primary Care Provider: Care Physician,No Primary Instructions Additional Instructions / Restrictions: Appendectomy Diet ? Start light with soups and soft bland foods. You may advance diet as tolerat ed. Activity ? You may drive in 3-5 days but not while taking narcotic pain medication. ? I encourage walking. You may go up steps, one at a time. ? Do not swim or use hot tubs for 2 weeks. ? For comfort, you may use warm compresses or ice as needed for 15-20 minutes at a time. Lifting ? You may lift up to 20 pounds for 2 weeks. No strenuous activity for 4 weeks. Dressings/Incision ? You may shower OVER your incisions Medications ? Anesthesia used during surgery and pain medications may cause constipation. I recommend initiating on the day of surgery a fiber supplement like, Metamucil, Citrucel, FiberCon, Benefiber, or a generic form of these medications. 1 heaping tablespoon in water daily. You may continue to utilize any bowel regimen or oral laxatives that you routinely take. ? As long as you are not intolerant to Tylenol, acetaminophen, ibuprofen, Motrin, Advil, Aleve, or similar medications, I would recommend transitioning to these [id number] medicines as soon as possible instead of continued use of narcotic pain medication. Follow up ? You should call [facility] soon after surgery, at [phone] option 2 to make a follow up appointment for 14 days after your surgery Discharge Orders/Prescriptions Prescriptions: New acetaminophen 500 mg Tablet 1,000 mg PO Q8 Qty: 0 0RF oxycodone 5 mg Tablet 5 mg PO Q6H PRN (Reason: pain) 3 Days Qty: 9 0RF Referrals / Follow Up: Care Physician,No Primary [Primary Care Provider] - Fela Fraser PA-C [Med Staff - Adv Practice Prof] - 08/11/24 Disposition Disposition (needs filled in before D/C Order can be placed): Home, Self Care
--- NOTE | 2024-07-28 12:56 | CASEMGMT ---
RN MATT NOTE: Discharge order is in. RN CM to room. Sig other and 2 children are @ bedside. Introduced self and role. Pt denies having any discharge concerns. Aware Rx's have been sent to [facility] Retail pharmacy. Pt also aware he is to f/u w/[facility] in 2 wks. He does not have a PCP, recommended to get established w/one. Provided w/local PCP directory. Memo GARCIAN GABE CM
== END 2024-07-28 13:30 | disposition home or self-care (01) ==
LOC: ED 16:37 → SDC 16:56 → MS3 16:56 → SDC 07-28 01:16 → MS3 07-28 01:16
PROVIDERS: Admitting Provider Surgery; Emergency Provider Emergency Medicine; Visit Provider Surgery
PROC: 0DTJ4ZZ Resection of Appendix, Percutaneous Endoscopic Approach (ICD-10-PCS; CPT 44970; principal; 2024-07-27 17:45)
DX: K35.80 Unspecified acute appendicitis (principal); F17.210 Nicotine dependence, cigarettes, uncomplicated; F17.220 Nicotine dependence, chewing tobacco, uncomplicated
CPT/HCPCS: 44970; 36415; 71045; 74177; 80048; 80076; 81001; 83690; 85025; 85610; 85730; 86850; 86900; 86901; 88304; 93005; 94668; 96365; 96366; 96375; 99221; 99284; Q9967; A4216; G0378; J2405